=== PATIENT | male | born 1965 | race African-American/Black ===

== ENCOUNTER 2016-11-28 17:14 | Emergency (ER) | payer OTHER ==
[~2016-11-28] VITALS: Ht 177.8 cm; Wt 90.9 kg
[2016-11-28] MEDS ORDERED: 0.9% Sodium Chloride 1,000 ML IV ONE (17:15)
[2016-11-28 17:18] VITALS: BP 169/83; PULSE 117; RESP 17; O2SAT 97
[2016-11-28] MEDS ORDERED: Adenosine 3 mg/mL 2 mL Inj ONE (17:32)
[2016-11-28] MEDS ORDERED: Adenosine 3 mg/mL 2 mL Inj IVPUSH ONE ×2 (17:35)
--- NOTE | 2016-11-28 17:46 | ED.REPORT ---
HPI-General Illness Date of Service Nov 28, 2016 ED Provider: Mariel Argueta MD Patient is a 50 year old male with a history of hypertension who presents to the ED via EMS due to intermittent heart palpitations onset 2 hours ago. He denies chest pain or shortness of breath. The patient reports that when the heart palpitations began he attempted the vagal maneuver and the palpitations went away for a little bit but later returned again. Upon EMS arrival, the patient was in SVT but converted before arriving to the ED. He states that he has had heart palpitations before but it normally resolves, with his last episode happening six months ago. Nursing Notes Stated Complaint: RAPID HEART RATE Chief Complaint: Dysrhythmia/Cardiac Nursing Notes Reviewed: Yes Allergies: Coded Allergies: No Known Allergies (Unverified , 11/28/16) General Time Seen by MD: 17:31 Chief Complaint Other (palpitations) Hx Obtained From: Patient Arrived By: Ambulance Sudden in Onset?: Yes Onset Occurred: 1 - 4 hours ago Symptom Duration: Intermittent Severity: Current: No pain currently Recent Healthcare: No recent hospitalization Similar Sx Previous: Yes Past Medical History Past Medical History Reports: Hypertension Smoking History Unknown if Ever Smoker Social History Alcohol Use: "Social" Ambulatory Status Independent Review of Systems Full Review of Systems Constitutional: Denies: Chills, Fever Respiratory: Denies: Non-productive cough, Shortness of breath Cardiovascular: Reports: Palpitations, Denies: Chest pain Skin: Denies Diaphoresis, Denies Itching, Denies Rash, Denies Swelling Neurologic: Denies: Dizziness, Lightheaded, Problem walking, Weakness Complete sys rev & neg: except as marked. Physical Exam Vital Signs Vital Signs Date Time Temp Pulse Resp B/P Pulse Ox O2 Delivery O2 Flow Rate FiO2 11/28/16 17:18 36.7 117 17 169/83 97 Room Air Initial VS: Reviewed General/Constitutional: Awake, Alert, No acute distress Head / Eyes: Atraumatic, Normocephalic, PERRL, EOMI Respiratory / Chest: Atraumatic, Breath sounds NL, Breath sounds = bilat, No respiratory distress Cardiovascular: Heart sounds NL, No murmurs Heart Rate / Rhythm: Positive: Tachycardia Abdomen: Atraumatic, Soft, Non-tender Upper Extremities Upper Extremity / MS: Atraumatic, Full range of motion Lower Extremity / Pelvis / MS: Atraumatic, No edema Skin: Atraumatic, Color NL, No rash, Warm, Dry Neurologic: Oriented X3, Speech NL, No motor deficits, No sensory deficits Psychiatric: Affect NL, Mood NL Interpretation & Diagnostics Lab Results Interpretation Result Diagram: 11/28/166 11/28/16 1756 Test 11/28/16 17:56 White Blood Count 12.3th/mm3 (3.8-10.1) Red Blood Count 5.04mil/mm3 (4.40-5.80) Hemoglobin 15.6g/dL (13.8-17.2) Hematocrit 45.0% (41.0-50.0) Mean Corpuscular Volume 89.3fL (81-100) Mean Corpuscular Hemoglobin 31.0pg (27.0-35.0) Mean Corpuscular Hemoglobin Concent 34.7% (32.0-37.0) Red Cell Distribution Width 13.0% (12.3-15.4) Platelet Count 264bil/L (150-400) Neutrophils (%) (Auto) 84.4% (40-74) Lymphocytes (%) (Auto) 7.8% (14-46) Monocytes (%) (Auto) 6.9% (4-12) Eosinophils (%) (Auto) 0.5% (0-5) Basophils (%) (Auto) 0.2% (0-3) Sodium Level 139mEq/L (134-144) Potassium Level 3.6mEq/L (3.5-5.2) Chloride Level 104mEq/L (97-108) Carbon Dioxide Level 19mmol/L (18-29) Blood Urea Nitrogen 15mg/dL (6-24) Creatinine 1.33mg/dL (0.76-1.27) Estimat Glomerular Filtration Rate 61mL/min (>59) Glucose Level 114mg/dL (60-99) Calcium Level 9.2mg/dL (8.5-10.1) Magnesium Level 1.9mg/dL (1.6-2.6) Total Bilirubin 0.3mg/dL (0.0-1.2) Aspartate Amino Transf (AST/SGOT) 28U/L (0-50) Alanine Aminotransferase (ALT/SGPT) 17U/L (0-44) Alkaline Phosphatase 79U/L (25-150) Troponin T < 0.010ug/L (0.0-0.011) Total Protein 7.5g/dL (6.4-8.4) Albumin 3.8g/dL (3.4-5.0) ECG Interpretation ECG Interpretation: supraventricular tachycardia, rate 104 Time: 17:31 Interpreted by: ED physician Time: 18:58 Interpreted by: ED physician Normal ECG Interpretation: Normal sinus rhythm (sinus tach), No acute ischemic changes, Normal QRS, Normal axis, Adequate tracing Abnormal Rate: 100 (116) Procedures SVT Treatment 6mg was given at 1738 followed by 12mg at 1741 where his heart rate went down into the 80's and then back in to 210's confirming SVT Procedure Performed by: ED physician Consent / Timeout / Setup: Consent from patient, Time-out performed, Pulse oximeter applied, case monitor applied Adenosine IV Attempt # 1: Dose 6mg IVP, Transient success Adenosine IV Attempt # 2: Dose 12mg IVP, Transient success Post-Procedure: No complications, Tolerated procedure well, Patient stable Re-Eval/Medical Decision Time of Eval: 17:50 Re-Evaluation/Progress Note: Patient spontaneously converted into sinus rhythm Re-Evaluation/Progress Note: Discussed all results and plan for discharge. Patient understands and agrees to the plan. All questions were addressed. Counseled Regarding: Diagnosis, Lab results, Need for follow-up, When/why to return to ED Discharge & Departure Primary Impression: SVT (supraventricular tachycardia) Disposition: Home Discharge Condition All VS Reviewed: Yes Condition: Stable Patient Instructions: Supraventricular Tachycardia (ED) Additional Instructions: You were in supraventricular tachycardia but were able to convert yourself back to a normal rate in the ED. Prior to spontaneous conversion, we did try a dose of 6 mg of adenosinel and were effective for approximately 2 seconds. This was followed by 12 mg of IV adenosine and was effective for approximately 6 seconds. Your lab workup and chest x-ray are unremarkable. You did receive 25 mg of metoprolol, a beta rc, in the emergency department to try and prevent recurrent episodes of SVT this evening. Follow up with your primary care physician next week. It may be worth an appointment with a feeder associate if you have continued recurrent frequent episodes of SVT to see if there is anything that can or needs to be done to prevent this. Avoiding caffeine can be helpful. Avoiding any other stimulants, herbal, recreational and emotional can also be helpful. I hope you are feeling better. Thank you for letting us take care of you today Return to the emergency department if you develop any new or concerning symptoms. Referrals: Will Lake MD Attestation Portions of this note were transcribed by Olga Dean. I, Dr. Argueta personally performed the history, physical exam and medical decision-making; I reviewed and confirmed the accuracy of the information in the transcribed note. Signed by: Jasen Wilks, 11/28/16 and 1800 copies to: Will Lake MD, Shawna L MD Nov 28, 2016 17:46 Flori Dean Nov 28, 2016 17:55
[2016-11-28 18:08] LABS: BASOPHILS % (AUTO) 0.2 % (0-3); EOSINOPHILS % (AUTO) 0.5 % (0-5); MONOCYTES % (AUTO) 6.9 % (4-12); Mean Corpuscular Volume 89.3 fL (81-100); NEUTROPHILS % (AUTO) 84.4 % (40-74); Platelet Count 264 bil/L (150-400)
[2016-11-28 18:40] LABS: TROPONIN T < 0.010 ug/L (0.0-0.011)
[2016-11-28 18:44] LABS: Magnesium 1.9 mg/dL (1.6-2.6)
--- NOTE | 2016-11-28 18:51 | DRSVH ---
PROCEDURE: X-RAY CHEST ONE VIEW, PORTABLE ([id number]) INDICATIONS: 50 year-old male with chest pain and tachycardia. TECHNIQUE: One view of the chest was acquired. COMPARISON: None. FINDINGS: Surgical changes and devices: None. Lungs and pleura: No pleural effusions or pneumothorax. Lungs are clear. Mediastinum: Mediastinal contours appear normal. Heart size is normal. Bones and chest wall: No suspicious bony lesions. Overlying soft tissues appear unremarkable. IMPRESSION: No acute cardiopulmonary disease. Dictated by: Chris Tian M.D. on 11/28/2016 at 18:49 Approved by: Chris Tian M.D. on 11/28/2016 at 18:50
[2016-11-28 19:26] VITALS: BP 155/87; PULSE 79; RESP 17; O2SAT 98
== END 2016-11-28 19:37 | disposition home or self-care (01) ==
LOC: SED 17:14 → EDBD 17:14 → SED 19:37
DX: I47.1 Supraventricular tachycardia (principal); I10 Essential (primary) hypertension
CPT/HCPCS: 36415; 71010; 80053; 83735; 84484; 85025; 93005; 96361; 96374; 99285; J0153; J7030